=== PATIENT | male | born 1965 | race Caucasian/White ===

== ENCOUNTER 2024-12-21 09:43 | Emergency (ER) | payer OTHER, SELFPAY ==
--- OUTSIDE RECORDS SUMMARY | 2024-12-21 09:46 | XMS_ITS ---
Author Organization [facility] Address Unknown Allergies, Adverse Reactions, Alerts Substance Reaction Status Noted Date Resolved Date Amoxicillin active 09/07/2018 Problems Problem Status Start Date End Date ENCOUNTER FOR OTHER SPECIFIE D SURGICAL AFTERCARE (Primary) (Z48.89 - ICD-10-CM) ACTIVE 09/07/2018 RADICULOPATHY, CERVICAL REGION (M54.12 - ICD-10-CM) AC TIVE 09/07/2018 OBESITY, UNSPECIFIED (E66.9 - ICD-10-CM) ACTIVE 09/07/2018 ESSENTIAL (PRIMARY) HYPERTENSION (I10 - ICD-10-CM) ACT BERNARDINO 09/07/2018 NICOTINE DEPENDENCE, UNSPECI FIED, UNCOMPLICATED (F17.200 - ICD-10-CM) ACTIVE 09/07/2018 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 with no home health services [facility] 09/07/2018 04:23 pm EDT - 09/08/2018 11:53 am EDT Immunizations Vaccine Date Influenza 08/18/2018 01:00 am EDT TDap 01/05/2012 01:00 am EST Social History
--- OUTSIDE RECORDS SUMMARY | 2024-12-21 09:46 | XMS_ITS | Clinical Summary ---
Author Organization [employer] [facility] Address [place], [place] [address] Care Team Providers Care Egg Smeller Name Role Phone Nonstaff, Doctor Unavailable Unavailable Nestor Mixon MD Primary Care Provider + [phone] Allergies No known active allergies Medications TOPROL XL 50 MG 24 HR TAB take 1 tablet (50 mg) by oral route once daily 90 0 7 Active ondansetron (ZOFRAN ODT) 8 mg disintegrating tabletIndications:V omiting, unspecified vomiting type, unspecified whether nausea present Place 1 Tablet (8 mg) on the tongue every 8 hours if needed for Nausea/Vomi ting. 12 Tablet 2 Active Social History Tobacco Use Types Packs/Day Years Used Date Smoking Tobacco: Never Assessed Sex and Gender Information Value Date Recorded Sex Assigned at Not on file Legal Sex Male 5:47 AM [employer] Gender Identity Not on file Sexual Orientation Not on file Obstetrics History Last Filed Vital Signs Vital Sign Reading Time Taken Comments Blood Pressure 157/88 06/20/2022 12:01 PM CDT Pulse 109 06/20/2022 11:40 AM CDT Temperature 36.9 C (98.4 F) 06/20/2022 8:50 AM CDT Respiratory Rate 16 06/20/2022 8:50 AM CDT Oxygen Saturation 91% 06/20/2022 11:40 AM CDT Inhaled Oxygen Concentration - - Weight 97.5 kg (215 lb) 06/20/2022 8:50 AM CDT Height 177.8 cm (5' 10) 06/20/2022 8:50 AM CDT Body Mass Index 30.85 06/20/2022 8:50 AM CDT Plan of Treatment Health Maintenance Due Date Last Done Comments Tdap 1974 Depression screening for age 12+ 1975 HIV for age 15-65 1978 BMI (ht and wt on same day) for age 18+ 1981 Hepatitis C screening for ag e 18-79 1981 Tetanus booster 1983 Colonoscopy through age 75 2008 Lipids for age 45-75 03/18/2011 03/18/2006 Pneumococcal series for age 50+ (1 of 1 - PCV) 2013 Zoster (shingles) series for age 50+ (1 of 2) 2013 COVID-19 vaccine series ( - season) 2024 Influenza for age 50-64 07/22/2024 RSV vaccine for adults or (1 - 1-dose 75+ series) 2038 Pneumococcal series for age 6-49 Aged Out No longer eligible based on patient's age to complete this topic Procedures Procedure Name Priority Date/Time Associated Diagnosis Comments LIPID PANEL Timed 03/18/2006 4:28 PM CDT from Last 3 Months or Most Recently Relevant to Health Maintenance Results * (ABNORMAL) LIPID PANEL (03/18/2006 4:28 PM CDT) CHOLESTEROL,TOTAL 156 110 - 199 mg/dL [facility] TRIGLYCERIDES 129 <150 mg/dL [facility] HDL CHOLESTEROL 39(L) >40 mg/dL [facility] CHOL/HDL RATIO 4.00 <4.51 [facility] LDL CHOLESTEROL 91 <131 mg/dL [facility] PATIENT STATUS Fasting [facility] 03/18/2006 4:28 PM CDT 03/18/2006 4:19 PM CDT us Keyon Montalvo MD CHEMISTRY Final Resu lt [facility] [address] [place] [address] from Last 3 Months or Most Recently Relevant to Health Maintenance Insurance [employer] [id number] [place] [address] Care Teams Egg Smeller Relationship Specialty Start Date End Date Nestor Mixon MD [address] [place] [address] PCP - General Internal Medicine 06/20/22 Nonstaff, Doctor NON STAFF DOCTOR 02/08/14
[2024-12-21 10:00] VITALS: BP 181/97; PULSE 81; RESP 18; TEMP 36.6; O2SAT 97; BMI 28.0
[2024-12-21 11:16] LABS: Appearance Urine Clear (Clear); Bilirubin Urine Negative (Negative); Blood Urine Negative (Negative); Color Urine Yellow (Yellow); Glucose Urine Negative (Negative); Ketones Urine Negative (Negative); Leukocyte Esterase Urine Negative (Negative); Nitrite Urine Negative (Negative); Protein Urine Trace (Negative); Urobilinogen Urine 0.2 (0.2-1.0); pH Urine 6.5 (5.0-8.5)
[2024-12-21 11:38] LABS: RBC Urine 0-2 (0-2); WBC Urine 0-2 (0-5)
--- NOTE | 2024-12-21 11:51 | ED.GENADULT ---
HPI - General Adult General Date Seen: 12/21/24 Chief complaint: Urogenital Problems, Male Stated complaint: Swollen testicle, pain down right leg Time Seen by Provider: 12/21/24 11:03 History of Present Illness HPI narrative: patient is a 59-year-old male here for evaluation of right scrotal pain and swelling. He notes that symptoms started at the beginning of September, about 3 months ago. They have gradually worsened. He has not noted significant redness but he does have quite a bit of swelling to the point that walking is uncomfortable. He has not had dysuria but he notes that it is sometimes hard to initiate his stream of urine. No fevers. Denies trauma. Does have a history of hydrocele as a young person which was surgically treated. He notes that his blood pressure is higher than normal here which he attributes to having had 2 cups of coffee this morning. Related Data Home Medications ?Medication ?Instructions ?Recorded ?Confirmed No Known Home Medications 12/21/24 12/21/24 Allergies Allergy/AdvReac Type Severity Reaction Status Date / Time No Known Drug Allergies Allergy Verified 12/21/24 10:06 Review of Systems Status of ROS: Reports: 6 or more systems reviewed and unremarkable except as noted in History and below PFSH [facility] Social History Smoking Status: Never smoker How often do you have a drink containing alcohol: never How often do you have six or more drinks on one occasion: Never AUDIT-C Alcohol total score: 0 Non-prescribed substance use: denies use service: No Exam Narrative: Exam Narrative: Vital signs reviewed In general, alert, well-appearing male. He looks comfortable. Abdomen: Soft, nontender. Nondistended. No inguinal tenderness or swelling. : He has marked swelling of the right hemiscrotum with a seemingly well circumscribed, fluctuant mass. This is mildly tender. There is no erythema or warmth. I am not able to palpate the testicle well secondary to this mass. Const: Vital Signs, click to edit/add: Vital Signs - 24 hr 12/21/24 10:00 Temperature 98 F Pulse Rate [Pulse Oximeter] 81 Respiratory Rate 18 Blood Pressure [Le ft Upper Arm] 181/97 H Pulse Oximetry 97 Oxygen Delivery Me thod Room Air Documenting provider has reviewed patient's vital signs: yes Course Course ED Course: Testicular ultrasound ordered. Preliminary read is that of hydrocele without other significant findings. Awaiting final radiology read. UA is negative. He declines need for anything for pain. Assuming the final radiology read agrees with the preliminary, plan would be for outpatient Urology follow-up. Final radiology report reviewed, agrees with large right has hydrocele, there is a small cyst in the right testicle measuring 3 mm. No evidence of torsion. Results discussed with him. Recommend outpatient Urology follow-up for management. Return for severe uncontrolled pain, fevers, redness or other worsening. Vital Signs Vital signs: Initial Vital Signs Temperature 98 F 12/21/24 10:00 Temperature Source Temporal Artery Scan 12/21/24 10:00 Pulse Rate 81 12/21/24 10:00 Pulse Rhythm Regular 12/21/24 10:00 Respiratory Rate 18 12/21/24 10:00 Blood Pressure 181/97 H 12/21/24 10:00 Blood Pressure Mean 125 H 12/21/24 10:00 Blood Pressure Position Semi-Fowlers 12/21/24 10:00 Pulse Oximetry 97 12/21/24 10:00 Oxygen Delivery Method Room Air 12/21/24 10:00 Vital Signs Temperature 98 F 12/21/24 10:00 Pulse Rate 81 12/21/24 10:00 Respiratory Rate 18 12/21/24 10:00 Blood Pressure 181/97 H 12/21/24 10:00 Pulse Oximetry 97 12/21/24 10:00 Oxygen Delivery Method Room Air 12/21/24 10:00 Temperature 98 F 12/21/24 10:00 Pulse Rate 81 12/21/24 10:00 Respiratory Rate 18 12/21/24 10:00 Blood Pressure 181/97 H 12/21/24 10:00 Pulse Oximetry 97 12/21/24 10:00 Oxygen Delivery Method Room Air 12/21/24 10:00 Medical Decision Making Lab Data Labs: Lab Results 12/21/24 Range/Units 10:47 Urine Color Yellow (Yellow) Urine Appearance Clear (Clear) Urine pH 6.5 (5.0-8.5) Ur Specific [place] 1.010 (1.000-1.030) Urine Protein Trace A (Negative) Urine Glucose (UA) Negative (Negative) Urine Ketones Negative (Negative) Urine Blood Negative (Negative) Urine Nitrite Negative (Negative) Urine Bilirubin Negative (Negative) Urine Urobilinogen 0.2 (0.2-1.0) Ur Leukocyte Esterase Negative (Negative) Urine RBC 0-2 (0-2) Urine WBC 0-2 (0-5) Ur Squamous Epith Cells None (None-Few) Urine Bacteria None (None) Imaging Data Scrotal ultrasound: Attestation: I have reviewed the pertinent imaging results. Radiologist's impression: [place] [address] Diagnostic Imaging Report Patient: Jonnathan Angulo MR#: [id number] : 1965 Acct:[id number] Loc: ED Service Date: 12/21/[address]: Ordering Physician: Fauzia Matute M.D. Date of Service: 12/21/24 Procedure(s): US scrotum Accession Number(s): [id number] cc: Fauzia Matute M.D.; Nestor Mixon M.D.~ For Patients: As a result of the Cures Act, medical imaging exams and procedure reports are released immediately into your electronic medical record. You may view this report before your referring provider. If you have questions, please contact your health care provider. Indication: RIGHT TESTICULAR PAIN. Technique: Ultrasound of the scrotum and contents. Sonographic jacome-scale images were obtained with spectral and color Doppler waveform and spectral waveform analysis of the testicles. Comparison: None. Findings: Bother testicles are normal in size and echotexture. Right testicular small cyst abutting the rete testes measures 3 mm. Unremarkable left testicle. Arterial and venous color Doppler blood flow and spectral waveforms are present in both testicles. Epididymis: Left epididymis is unremarkable with normal blood flow. Right epididymis is not well visualized. Other: Large right hydrocele. No sign of varicocele. Scrotal wall is normal. Impression: 1. Large right hydrocele. 2. No sign of torsion. Dictated by Abraham Samson MD @ 12/21/2024 12:11:51 PM Discharge Plan Discharge Clinical Impression: Hydrocele, right Patient Disposition: Home, Self-Care Condition: Stable Instructions: Hydrocelectomy (DC) Additional Instructions: You can use Tylenol or ibuprofen if needed. Follow-up with [place] [facility], please call [phone] to schedule an appointment. Return for severe pain, redness, fevers or other worsening. I would recommend taking your ultrasound with you to your follow-up visit. Prescriptions: No Action No Known Home Medications Follow Up/Referrals: Nestor Mixon MD [Primary Care Provider] - Stand Alone Forms: [employer] Info Instructions
== END 2024-12-21 12:26 | disposition home or self-care (01) ==
PROVIDERS: Emergency Provider Emergency Medicine; PCP Internal Medicine
DX: N43.3 Hydrocele, unspecified (principal)
CPT/HCPCS: 76870; 80048; 81001; 85025; 86140; 93976; 99284